=== PATIENT | female | born 1960 | race Caucasian/White ===

== ENCOUNTER 2024-09-28 19:54 | Inpatient (IN) ==
[2024-09-28] MEDS: 0.9 % SODIUM CHLORIDE 1,000 ML IV ONE (20:13)
[2024-09-28] MEDS: METOPROLOL TARTRATE 5 MG/5 ML VIAL IV ONE ×2 (20:13→20:34)
[2024-09-28 20:29] LABS: Basophils # (Auto) 0.09 K/mcL (0.00-0.30); Basophils % (Auto) 0.8 % (0.0-2.0); Eosinophils # (Auto) 0.35 K/mcL (0.00-0.70); Eosinophils % (Auto) 2.9 % (0.0-7.0); Hematocrit 42.2 % (34.1-44.9); Hemoglobin 13.9 g/dL (11.2-15.7); Lymphocytes # (Auto) 4.27 K/mcL (1.50-4.80); Lymphocytes % (Auto) 35.6 % (15.5-49.0); Mean Corpuscular HGB Conc 32.9 g/dL (31.0-36.0); Monocytes # (Auto) 0.81 K/mcL (0.10-0.90); Monocytes % (Auto) 6.8 % (1.0-12.0); Neutrophils % (Auto) 53.8 % (38.0-78.0); Platelet Count 236 K/mcL (140-440); RBC 4.55 M/mcL (3.59-5.38); WBC 12.0 K/mcL (4.5-11.0)
[2024-09-28 20:53] LABS: Alcohol,Blood < 0.010 gm/dL (<0.010)
[2024-09-28 20:57] LABS: ALT/SGPT 20 U/L (<40); AST/SGOT 23 U/L (<32); Albumin 4.2 gm/dL (3.2-5.2); Albumin/Globulin Ratio 1.5 (1.0-2.3); Alkaline Phosphatase 73 U/L (39-117); Anion Gap 14.0 (8.0-16.0); Bilirubin,Total 0.3 mg/dL (0.1-1.0); Blood Urea Nitrogen 20 mg/dL (8-23); Calcium 9.1 mg/dL (8.6-10.4); Carbon Dioxide 24 mmol/L (22-30); Chloride 109 mmol/L (96-108); Globulin 2.8 gm/dL (2.2-3.7); Glucose 106 mg/dL (70-105); Potassium 3.5 mmol/L (3.3-5.1); Sodium 147 mmol/L (133-145); Thyroid Stimulating Hormone 2.24 uIU/mL (0.27-5.01)
[2024-09-28] MEDS: METOPROLOL TARTRATE 50 MG TABLET PO ONE (21:02)
[2024-09-28 21:28] LABS: Bacteria,Urine Mod /hpf (0); Bilirubin,Urine Negative (Negative); Color,Urine Yellow; Glucose,Urine (UA) Negative (Negative); Ketones,Urine Negative (Negative); Leukocyte Esterase,Urine Large /uL (Negative); PH,Urine 6.0 (5.0-9.0); Protein,Urine Negative (Negative); Specific Gravity,Urine 1.010 (1.000-1.035); Urobilinogen,Urine Normal
[2024-09-28] MEDS: APIXABAN 5 MG PO ONE (22:03)
[2024-09-28] MEDS: cefTRIAXone 1 GM VIAL IV ONE (22:13)
[2024-09-28] MEDS: DILTIAZEM 125 MG in DEXTROSE 5% IN WATER 100 ML IV SCH (22:15)
[2024-09-28] MEDS: APIXABAN 5 MG TABLET PO ONE (22:32)
[2024-09-28] MEDS ORDERED: ONDANSETRON 4 MG/2 ML VIAL IV PRN (22:54)
[2024-09-28] MEDS ORDERED: SENNOSIDES 1 TABLET PO PRN (22:54)
[2024-09-28] MEDS ORDERED: IPRATROPIUM/ALBUTEROL 3 ML AMPUL.NEB NEB PRN (22:54)
[2024-09-28] MEDS ORDERED: LORazepam 2 MG/ML VIAL IV PRN (22:54)
[2024-09-28 22:57] LABS: Thyroid Stimulating Hormone 2.30 uIU/mL (0.27-5.01)
[2024-09-28] MEDS: 0.9 % SODIUM CHLORIDE 250 ML IV SCH (23:30)
[2024-09-29 05:47] LABS: Basophils # (Auto) 0.06 K/mcL (0.00-0.30); Basophils % (Auto) 0.7 % (0.0-2.0); Eosinophils # (Auto) 0.32 K/mcL (0.00-0.70); Eosinophils % (Auto) 3.8 % (0.0-7.0); Hematocrit 38.7 % (34.1-44.9); Hemoglobin 12.9 g/dL (11.2-15.7); Lymphocytes # (Auto) 2.68 K/mcL (1.50-4.80); Lymphocytes % (Auto) 31.8 % (15.5-49.0); Mean Corpuscular HGB Conc 33.3 g/dL (31.0-36.0); Monocytes # (Auto) 0.50 K/mcL (0.10-0.90); Monocytes % (Auto) 5.9 % (1.0-12.0); Neutrophils % (Auto) 57.8 % (38.0-78.0); Platelet Count 232 K/mcL (140-440); RBC 4.22 M/mcL (3.59-5.38); WBC 8.4 K/mcL (4.5-11.0)
[2024-09-29] MEDS: 0.9 % SODIUM CHLORIDE 10 ML SYRINGE IV SCH (05:52)
[2024-09-29 06:05] LABS: Phosphorous 2.9 mg/dL (2.5-4.5)
[2024-09-29 06:09] LABS: Anion Gap 11.0 (8.0-16.0); Blood Urea Nitrogen 12 mg/dL (8-23); Calcium 8.7 mg/dL (8.6-10.4); Carbon Dioxide 24 mmol/L (22-30); Chloride 117 mmol/L (96-108); Glucose 105 mg/dL (70-105); Potassium 3.7 mmol/L (3.3-5.1); Sodium 152 mmol/L (133-145)
[2024-09-29] MEDS: DOCUSATE SODIUM 100 MG CAPSULE PO SCH (08:21)
[2024-09-29] MEDS: METOPROLOL TARTRATE 25 MG TABLET PO SCH (08:41)
[2024-09-29] MEDS: ENOXAPARIN 40 MG/0.4 ML SYRINGE SQ SCH (08:42)
[2024-09-29] MEDS ORDERED: APIXABAN 5 MG TABLET PO SCH (09:00)
[2024-09-29] MEDS: 0.45 % SODIUM CHLORIDE 1,000 ML IV ONE (10:01)
[2024-09-29] MEDS ORDERED: ALBUTEROL SULFATE 60 PUFF INHALER INH PRN (12:20)
[2024-09-29 12:43] LABS: Anion Gap 9.0 (8.0-16.0); Blood Urea Nitrogen 14 mg/dL (8-23); Calcium 8.7 mg/dL (8.6-10.4); Carbon Dioxide 24 mmol/L (22-30); Chloride 108 mmol/L (96-108); Glucose 94 mg/dL (70-105); Potassium 3.9 mmol/L (3.3-5.1); Sodium 141 mmol/L (133-145)
[2024-09-29 13:17] VITALS: TEMP 98.2; O2SAT 98
[2024-09-29] MEDS ORDERED: VITAMIN D3 25 MCG TABLET PO SCH (21:00)
[2024-09-29] MEDS ORDERED: MULTIVIT,THER IRON,CA,FA & MIN 1 TABLET PO SCH (21:00)
== END 2024-09-29 13:14 | disposition home or self-care (01) | DRG 309 ==
LOC: ED 19:54 → ICU 22:48
PROVIDERS: ADMIT Internal Medicine; ATTEND Internal Medicine